=== PATIENT | male | born 1985 | race Two or more races ===

== ENCOUNTER 2018-08-20 00:02 | Emergency (ER) | payer OTHER ==
[~2018-08-20] VITALS: Ht 172.7 cm; Wt 99.8 kg
[2018-08-20] MEDS ORDERED: NKM (00:08)
--- NOTE | 2018-08-20 00:10 | NUR ---
ED Nurse Note: Patient walked into ED c/o right hand pain, patient states that he landed on his right hand causing limited range of movement. AO4 NAD VSS.
[2018-08-20 00:12] VITALS: BP 148/95
[2018-08-20] MEDS ORDERED: IBUPROFEN600 MG ORAL (00:31)
--- NOTE | 2018-08-20 00:31 | NUR ---
ED Nurse Note: XRAY AT BEDSIDE
--- NOTE | 2018-08-20 00:32 | Emergency Room Report ---
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 He is right-hand dominant. He presents with chief complaint of right wrist injury. This happened on the job yesterday. He was arresting somebody and he fell. He caught himself with his right arm. Since then he complaining of pain to the right wrist area. Worse with movement especially extension. No swelling. Pain is 7 out of 10. No other injury. Allergies: Coded Allergies: No Known Allergies (Unverified , 08/20/18) Patient History Past Medical History: see triage record, old chart reviewed Past Surgical History: none Pertinent Family History: none Social History: Denies: smoking Immunizations: other Reviewed Nursing Documentation: PMH: Agreed; PSxH: Agreed Nursing Documentation-PMH Past Medical History: No Stated History Review of Systems Eye: Denies: eye pain, blurred vision ENT: Denies: ear pain, nose congestion, throat swelling Respiratory: Denies: cough, shortness of breath Cardiovascular: Denies: chest pain, palpitations Gastrointestinal: Denies: abdominal pain, diarrhea, nausea, vomiting Musculoskeletal: Reports: joint pain; Denies: back pain Skin: Denies: rash Neurological: Denies: headache, numbness Endocrine: Denies: increased thirst, increased urine Hematologic/Lymphatic: Denies: easy bruising All Other Systems: negative except mentioned in HPI Physical Exam Vital Signs Date Time Temp Pulse Resp B/P (MAP) Pulse Ox O2 Delivery O2 Flow Rate FiO2 08/20/18 00:05 98.6 75 18 148/95 98 Room Air vitals unremarkable Sp02 EP Interpretation: reviewed, normal General Appearance: well appearing, no apparent distress, alert Head: normocephalic, atraumatic Eyes: bilateral eye PERRL, bilateral eye EOMI ENT: hearing grossly normal, normal pharynx Neck: full range of motion, supple, no meningismus Respiratory: chest non-tender, lungs clear, normal breath sounds Cardiovascular #1: regular rate, rhythm, no murmur Gastrointestinal: normal bowel sounds, non tender, no mass, no organomegaly, no bruit, non-distended Musculoskeletal: back normal, gait/station normal, normal range of motion, other - Wrist: Tenderness in the dorsal aspects of the wrist distally. No deformity. Full range of motion. Sensation normal. Neurologic: alert, oriented x3 Psychiatric: mood/affect normal Skin: warm/dry Procedures Splinting Splinting : Consent: Verbal Location: Right wrist Pre-Made Type: velcro Splint: volar Pre-Proc Neuro Vasc Exam: normal Post-Proc Neuro Vasc Exam: normal Patient Tolerated: Well Complications: None Medical Decision Making Diagnostic Impression: Primary Impression: Right wrist sprain Qualified Codes: S63.501A - Unspecified sprain of right wrist, initial encounter ER Course Patient presents with wrist sprain. No fracture dislocation. We'll discharge home. Other X-Ray Diagnostic Results Other X-Ray Diagnostic Results : X-Ray ordered: X-rays right wrist # of Views/Limited Vs Complete: 3 View Indication: Pain EP Interpretation: Yes Interpretation: no dislocation, no soft tissue swelling, no fractures Impression: No acute disease Electronically Signed by: Vern Oshea MD Last Vital Signs Date Time Temp Pulse Resp B/P (MAP) Pulse Ox O2 Delivery O2 Flow Rate FiO2 08/20/18 00:12 98.6 68 18 148/95 98 Room Air Status: improved Disposition: HOME, SELF-CARE Condition: Stable Scripts Ibuprofen* (MOTRIN*) 600 Mg Tablet 600 MG ORAL THREE TIMES A DAY, #30 TAB 0 Refills Prov: Vern Oshea MD 08/20/18 Additional Instructions: Follow-up with Workmen's [employer]. doctor within a week. wear splint for comfort. Return if symptom worsen. Vern Oshea MD Aug 20, 2018 00:32
[2018-08-20 00:45] VITALS: BP 148/95
--- NOTE | 2018-08-20 00:45 | NUR ---
ER DISCHARGE NOTE: Patient is cleared to be discharged per ERMD, pt is aox4, on room air, with stable vital signs. pt was given dc and prescription instructions, pt was able to verbalize understanding, pt id band REMOVED. pt is able to ambulate with steady gait. pt took all belongings.
--- NOTE | 2018-08-20 11:07 | Diagnostic Imaging Report ---
Clinical Indication:Right wrist pain after falling one day ago Technique: 3 views of the right wrist Comparison: None Findings: No acute fractures. No dislocations. The joint spaces are preserved Impression: Negative
== END 2018-08-20 00:45 | disposition home or self-care (01) ==
LOC: EMR 00:15
DX: S63.501A Unspecified sprain of right wrist, initial encounter (principal); W19.XXXA Unspecified fall, initial encounter; Y92.9 Unspecified place or not applicable; Y99.0 Civilian activity done for income or pay
CPT/HCPCS: 29125; 99283